=== PATIENT | male | born 1990 | race Caucasian/White ===

== ENCOUNTER 2023-03-02 15:58 | Emergency (ER) | payer MEDICAID ==
[~2023-03-02] VITALS: Ht 177.8 cm; Wt 75.0 kg
[2023-03-02 17:13] LABS: Basophils # (auto) 0 10 ^3/uL (0-0.2); Basophils % (auto) 0.3 % (0.0-2.0); Eosinophils # (auto) 0 10 ^3/uL (0-0.8); Eosinophils % (auto) 0.2 % (0.0-7.0); Hematocrit 45.2 % (41.0-53.0); Hemoglobin 15.1 g/dL (13.5-17.5); Lymphocytes # (auto) 1.8 10 ^3/uL (0.4-5.4); Lymphocytes % (auto) 14.3 % (10.0-50.0); Mean Corpuscular Hgb Conc. 33.5 g/dL (32.0-36.0); Mean Corpuscular Volume 95.5 fL (80.0-100.0); Monocytes % (auto) 7.7 % (0.0-12.0); Neutrophils # (auto) 9.9 10 ^3/uL (1.6-8.6); Neutrophils % (auto) 77.5 % (37.0-80.0); Red Blood Cells 4.73 10^6/uL (4.5-5.90); White Blood Cell 12.8 10^3/uL (4.4-10.8)
[2023-03-02 17:28] LABS: Partial Thromboplastin Time 23.5 SEC (24.5-34.5); Prothrombin Time 10.5 sec (9.3-11.8)
[2023-03-02 17:29] LABS: Alanine Aminotransferase 57 U/L (7-40); Albumin 4.3 g/dL (3.2-4.8); Alkaline Phosphatase 306 U/L (46-116); Anion Gap 8.1 (5-15); Aspartate Aminotransferase 23 U/L (13-40); BUN/Creatinine Ratio 29.6 (10.0-20.0); Bilirubin, Total 0.5 mg/dL (0.2-1.0); Blood Urea Nitrogen 21 mg/dL (9-23); Calcium 9.5 mg/dL (8.5-10.1); Carbon Dioxide 28.9 mmol/L (20-30); Chloride 108 mmol/L (98-107); Glucose 135 mg/dL (74-106); Potassium 3.5 mmol/L (3.5-5.1); Sodium 145 mmol/L (136-145); Total Protein 6.2 g/dL (5.7-8.2)
[2023-03-02] MEDS ORDERED: LIDOCAINE 1% HCL (LOCAL ANESTH.) INJ 20ML MDV ONE (23:35)
[2023-03-03] MEDS ORDERED: LIDOCAINE 1% HCL (LOCAL ANESTH.) INJ 20ML MDV ONE (00:18)
[2023-03-03] MEDS ORDERED: DOXY-286 PO (00:40)
[2023-03-03] MEDS ORDERED: ACET-1304 PO (00:40)
[2023-03-03] MEDS ORDERED: cefTRIAXone W LIDOCAINE 1 GM IM IM ONE (00:45)
[2023-03-03] MEDS ORDERED: TETANUS-DIPTH-ACEL PERTUSSIS 0.5ML SYR Tdap IM ONE (00:45)
[2023-03-03] MEDS ORDERED: BACITRACIN TOP OINT 1 UD PKG TOP ONE (01:00)
[2023-03-03 01:49] VITALS: BP 140/101; PULSE 110; RESP 18; TEMP 98.8; O2SAT 98
[2023-03-03] MEDS ORDERED: cefTRIAXone 1GM/50ML D5W 50 ML IV ONE (02:00)
== END 2023-03-03 02:00 | disposition home or self-care (01) ==
LOC: ER 15:58 → EDBD 15:58 → ER 03-03 02:00
DX: S91.012A Laceration without foreign body, left ankle, initial encounter (principal); S70.01XA Contusion of right hip, initial encounter; I10 Essential (primary) hypertension; E11.9 Type 2 diabetes mellitus without complications; W10.8XXA Fall (on) (from) other stairs and steps, initial encounter; Y93.89 Activity, other specified; Y92.89 Other specified places as the place of occurrence of the external cause; Y99.8 Other external cause status
CPT/HCPCS: 12005; 36415; 73502; 73560; 73590; 73600; 80053; 85025; 85610; 85730; 96374; 99284; J0696; J2001